=== PATIENT | male | born 1965 | race Caucasian/White ===

== ENCOUNTER 2017-04-26 21:50 | Emergency (ER) | payer OTHER ==
[~2017-04-26] VITALS: Ht 175.3 cm; Wt 72.6 kg
[2017-04-26] MEDS ORDERED: IBUPROFEN600 MG ORAL (22:20)
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
[2017-04-26 22:25] VITALS: BP 139/90
== END 2017-04-26 22:26 | disposition home or self-care (01) ==
LOC: EMR 22:11
DX: S13.4XXA Sprain of ligaments of cervical spine, initial encounter (principal); V43.52XA Car driver injured in collision with other type car in traffic accident, initial encounter; Y92.414 Local residential or business street as the place of occurrence of the external cause
CPT/HCPCS: 99283